=== PATIENT | female | born 2000 | race Caucasian/White ===

== ENCOUNTER 2019-04-21 23:01 | Emergency (ER) | payer MEDICAID, BC ==
[~2019-04-21] VITALS: Ht 160 cm; Wt 90.5 kg
[2019-04-21 23:10] VITALS: TEMP 97.3
[2019-04-21 23:45] LABS: HEMATOCRIT 42.9 % (35.0-45.0); HEMOGLOBIN 14.2 g/dl (12.0-15.0); MEAN CELL VOLUME 77 fl (80.0-95.0); MEAN CORPUSCULAR HEMOGLOBIN 26 pg (26.0-32.0); MEAN CORPUSCULAR HGB CONC 33 g/dl (33.0-37.0); MEAN PLATELET VOLUME 11.1 fl (7.4-10.4); PLATELET COUNT 331 K/mm3 (130-400); RED BLOOD COUNT 5.56 M/mm3 (4.10-5.30); REDCELL DISTRIBUTION WIDTH-CV 14.2 % (11.5-14.5)
[2019-04-21 23:51] LABS: ALBUMIN 3.8 gm/dL (3.5-5.0); BILIRUBIN,TOTAL 0.5 mg/dL (0.0-1.0); CALCIUM 9.9 mg/dL (8.4-10.2); CREATININE, serum 0.51 (0.52-1.25); POTASSIUM 4.2 mmol/L (3.4-5.0); TOTAL PROTEIN 7.3 gm/dL (6.4-8.2)
[2019-04-22 00:39] LABS: BAND 19 % (0-10); LYMPHOCYTE 3 % (20.0-51.0); NEUTROPHILS 76 % (42.0-75.2); PLATELET ESTIMATE NORMAL (NORMAL)
[2019-04-22 00:41] LABS: OVALOCYTES 1+; TEAR DROP CELLS 1+
[2019-04-22 01:20] LABS: COLLECTION METHOD CLEAN CATCH
--- NOTE | 2019-04-22 01:52 | NUR ---
[address] MON[address]ING SHOWN TO DR MATA. WNL. MAY REMOVE MONITOR. PT IS EXPEIENCING MILD CRAMPING - DESCRIBES MENSTRUAL CRAMPS
[2019-04-22 02:17] LABS: MUCOUS Present /lpf; PH 5 (5-8); SQUAMOUS EPITHELIAL 0-2 /hpf; URINE APPEARANCE Hazy; URINE BACTERIA None Seen /hpf; URINE BILIRUBIN Negative (NEGATIVE); URINE BLOOD Negative (NEGATIVE); URINE COLOR Yellow; URINE GLUCOSE Negative (NEGATIVE); URINE KETONE 2+ (NEGATIVE); URINE LEUKOCYTE ESTERASE Negative (NEGATIVE); URINE NITRATE Negative (NEGATIVE); URINE PROTEIN(semi-quant) 2+ (NEGATIVE); URINE UROBILINOGEN Negative (NEGATIVE)
[2019-04-22 03:09] VITALS: BP 120/79; PULSE 110
== END 2019-04-22 03:03 | disposition home or self-care (01) ==
LOC: COL.ER 23:01
PROVIDERS: Emergency Medicine
DX: K52.9 Noninfective gastroenteritis and colitis, unspecified (principal)
CPT/HCPCS: J2405; J7030

== ENCOUNTER 2019-05-03 06:58 | Inpatient (IN) | payer BC, MEDICAID ==
[2019-05-03] VITALS (30 sets, daily range): BP systolic 102–140; BP diastolic 53–94; PULSE 69–107; TEMP 97.6–98
[~2019-05-03] VITALS: Ht 160 cm; Wt 91.4 kg
--- NOTE | 2019-05-03 07:10 | NUR ---
Patient ambulatory to LR5 with significant other and mother, changed into clean gown, FHR/TOCO monitors placed and explained. Patient denies any regular contraction/leaking of fluid/vaginal bleeding. Plan of care discussed and patient verbalizes understanding. 0720: IV started in right hand, blood obtained and to lab, LR infusing. Consents gone over and signed and assessment completed.
[2019-05-03 08:13] LABS: BASO % 0.3 % (0.0-2.0); EOS # 0.1 (0.0-0.7); EOS % 0.6 % (0-4.0); HEMOGLOBIN 12.9 g/dl (12.0-15.0); LYMPH # 1.8 (1.2-3.4); LYMPH % 12.8 % (20.0-51.0); MEAN CELL VOLUME 77 fl (80.0-95.0); MEAN CORPUSCULAR HEMOGLOBIN 25 pg (26.0-32.0); MEAN CORPUSCULAR HGB CONC 32 g/dl (33.0-37.0); MEAN PLATELET VOLUME 10.8 fl (7.4-10.4); MONO # 0.9 (0.1-0.6); MONO % 6.6 % (1.7-9.3); PLATELET COUNT 303 K/mm3 (130-400); RED BLOOD COUNT 5.21 M/mm3 (4.10-5.30); REDCELL DISTRIBUTION WIDTH-CV 14.4 % (11.5-14.5)
--- NOTE | 2019-05-03 08:30 | NUR ---
Dr Luevano at bedside and discussing plan of care. 0832: SVE per physician 3-4/100/-1 and AROM at this time with clear fluid noted. 0850: Patient off monitor to void and pericare. 0853: Patient on birthing ball and difficulty tracing FHR due to maternal position. This RN at bedside adjusting FHR montior.
--- NOTE | 2019-05-03 09:30 | NUR ---
FHR baseline 125 bpm. Subtle recurrent late decelerations noted at this time. Patient very uncomfortable with contractions and requesting epidural. Davis LEE called and notified. 1005: Patient sitting up for placement of epidural. Davis RN at bedside. FHR difficult to trace due to maternal position. 1013: Single shot given and patient tolerates well. 1018: Patient repositioned and becoming more comfortable. FHR tracing at 115-120bpm. SVE-5/100/-1 Patient wedged right and FHR increasing to 120-125bpm. 1035: Variable/early decelerations into the 80-90s noted but return quikly to baseline. 1055: Mohan catheter placed and patient tolerates well. SVE-8//-[address] Luevano called and notified.
--- NOTE | 2019-05-03 12:10 | NUR ---
1210: SVE-10/100/+1 Pushing instructions gone over and practice push at this time. Mohan catheter removed and patient tolerates well. Dr. Luevano called and notifed. FHR decreases to 100-115bpm at this time. 1220: Patient begins to push with each contraction. FHR gradually returning to 115-120bpm. 1240: Dr. Luevano at bedside and begins pushing with patient and assessing progress and FHR strip. Orders to continue pushing with patient and will be at nurses station. Patient continues to push with each contraction. 1300: Good maternal effort and Dr Luevano called into room Patient set up for delivery and bed taken apart. Pericare done. Patient continues to push with Dr. Luevano./ 1308: Spontaneous vaginal delivery of head followed by body. Infant to mothers abdomen and Ele RN assumes care of infant. Cord clamped by physician and cut by FOB. Cord blood obtained. 1313: Spontaneous vaginal delivery of placenta. Pitocin bolus started per protocol. Dr. Luevano begins repairing laceration of 1st degree 1315: Patient repostioned, fundal massage done/firm/bleeding WNL. Ice pack to perineum and plan of care discussed,
--- NOTE | 2019-05-03 15:45 | NUR ---
Patient ambulatory to bathroom with standby assist. Pericare done, new gown, undies, ice pack on. Patient to wheelchair and to room. Patient and family oriented to room, whiteboard gone over, and plan of care discussed
[2019-05-04 05:20] VITALS: BP 116/67; PULSE 81; TEMP 97.6
--- NOTE | 2019-05-04 09:58 | NUR ---
Initial visit; Parents thanked Pantograph Machine Set Up Operator for offering congratulations and God's blessings for the of their son. Pantograph Machine Set Up Operator thanked family for choosing [facility].
[2019-05-04 11:00] VITALS: BP 111/61; PULSE 89; TEMP 98.1
[2019-05-04 15:43] VITALS: BP 122/68; PULSE 91; TEMP 97.8
[2019-05-04 20:20] VITALS: BP 115/63; PULSE 87; TEMP 97.9
[2019-05-05 07:45] VITALS: BP 109/53; PULSE 85; TEMP 97.7
[2019-05-05] MEDS ORDERED: IBU600 MG PO (08:48)
== END 2019-05-05 11:45 | disposition home or self-care (01) | DRG 807 ==
LOC: LDR 06:58 → OB 06:58 → LDR 08:03 → OB 16:00
PROVIDERS: ADMIT Obstetrics & Gynecology
PROC: 10E0XZZ Delivery of Products of Conception, External Approach (ICD-10-PCS; principal; 2019-05-03)
PROC: 10907ZC Drainage of Amniotic Fluid, Therapeutic from Products of Conception, Via Natural or Artificial Opening (ICD-10-PCS; 2019-05-03)
PROC: 0HQ9XZZ Repair Perineum Skin, External Approach (ICD-10-PCS; 2019-05-03)
DX: O36.63X0 Maternal care for excessive fetal growth, third trimester, not applicable or unspecified (principal); Z37.0 Single live birth; Z3A.39 39 weeks gestation of pregnancy; O70.0 First degree perineal laceration during delivery
CPT/HCPCS: J2405; J2540; J2590; J2795; J7120

== ENCOUNTER 2022-01-30 07:37 | Inpatient (IN) | payer BC, MEDICAID ==
[~2022-01-30] VITALS: Ht 162.6 cm; Wt 87.3 kg
[~2022-01-30 07:37] MED LIST: IBU600 MG PO
[2022-01-31] VITALS (31 sets, daily range): BP systolic 93–131; BP diastolic 50–74; PULSE 72–941; TEMP 97.4–98.4
--- NOTE | 2022-01-31 10:55 | NUR ---
042737.3, G2L1 arrives on unit for scheduled IOL. Ambulatory to LDR6 with family. Changes into clean gown. Reports normal movement, and rare contractions. Denies any LOF or VB. 1106EFM explained and placed. Tracing well. VS obtained. Assessment completed. 1127 IV to right wrist. Routine labs obtained. IVF infusing. 1130Pitocin explained and started at 2mu per protocol. Consent forms explained and signed. 1320Dr. Goodpasture updated on pt. See physician notification. 1340C. Marcelo WASHER HAND at bedside for epidural placement. FHR tracing intermittenly due to maternal position. RN remains at bedside. 1345Epidural placed and single shot by Carlos Enrique Robertson CRNA. See anesthesia record. 1355Pt wedge left. Plan of care and safety precautions reviewed. Call light within reach.
[2022-01-31 11:48] LABS: BASO % 0.2 % (0.0-2.0); EOS # 0.2 K/mm3 (0.0-0.7); EOS % 1.2 % (0.0-4.0); GRAN % 77.9 % (42.2-75.2); HEMATOCRIT 39.7 % (37.0-47.0); HEMOGLOBIN 13.4 g/dl (12.5-16.0); LYMPH # 1.8 K/mm3 (1.2-3.4); LYMPH % 13.8 % (20.0-51.0); MEAN CELL VOLUME 82 fl (80.0-100.0); MEAN CORPUSCULAR HEMOGLOBIN 28 pg (27-31); MEAN CORPUSCULAR HGB CONC 34 g/dl (33.0-37.0); MONO # 0.8 K/mm3 (0.1-0.6); MONO % 6.4 % (1.7-9.3); PLATELET COUNT 236 K/mm3 (130-400); RED BLOOD COUNT 4.84 M/mm3 (4.10-5.30); REDCELL DISTRIBUTION WIDTH-CV 13.4 % (11.5-14.5)
--- NOTE | 2022-01-31 16:00 | NUR ---
1600 AIDEN AT BEDSIDE FOR DELIVERY. 1603 PT BEGINS TO PUSH WITH CONTRACTION WITH DR. WOLFE AT FOOT OF BED. 1605 SPOTANEOUS VAGINAL DELIVERY OF VIABLE FEMALE OVER INTACT PERINEUM. DELIVERED THROUGH NUCHAL CORD X 1. INFANT PLACED ON MOMS CHEST DRIED AND STIMULATED. BULB USED FOR SUCTION OF NOSE AND MOUTH BY May RAMIREZ RN 1607 CORD CLAMP X2 AND CUT BY FATHER OF BABY. CARE OF ASSUMED BY May RAMIREZ RN. 1610 SPONTANEOUS AND INTACT DELIVERY OF PLACENTA, PITOCIN STARTED [id number]. PERICARE PROVIDED ICEPACK APPLIED TO PERINEUM. SEE DICTATION, ANESTHESIA RECORD, AND NURSES NOTES.
--- NOTE | 2022-01-31 21:45 | NUR ---
1829- REPORT REC'D FROM ANELISE, RN/ TRANSFER OF CARE. PT SITTING UP IN BED HOLDING . DENIES ANY C/O PAIN AT THIS TIME. EPIDURAL CATHETER REMOVED BY THIS RN. PT TOLERATED WELL W/O ANY COMPLAINTS. BLUE TIP INTACT. NO REDNESS OR DRAINAGE NOTED FROM EPIDURAL SITE. 1929- PT UP TO BR INDEPENDENTLY W/O ANY PROBLEMS. STEADY GAIT. PT ABLE TO VOID AND PERFORM CHRIS CARE. EDUCATED PT ON BLEEDING AND WHEN TO NOTIFY NURSE. PT VERBALIZES UNDERSTANDING. 1939- PT TRANSFERRED TO ROOM 208,AMBULATORY. SIG. OTHER, RAUDEL REMAINS AT BS AND HELPFUL AND SUPPORTIVE. ORIENTED TO ROOM, POC D/W PT FOR THE NIGHT. CALL LIGHT WITHIN REACH. 2099- PT C/O MILD CRAMPING AND REQUEST PAIN MEDICATION. NURSING . 2109- TYLENOL 1000 MG PO GIVEN FOR PAIN. PT UP TO BR. ABLE TO VOID. #2 VOID SINCE DELIVERY. PT DENIES ANY FURTHER NEEDS AT THIS TIME.
[2022-02-01 07:30] VITALS: BP 110/69; PULSE 93; TEMP 97.6
[2022-02-01] MEDS ORDERED: MOTRIN 800800 MG/TAB PO (09:02)
--- NOTE | 2022-02-01 11:08 | NUR ---
Initial visit; Patient and family thanked Wine Fermenter for offering congratulations and God's blessings for the of their daughter. Wine Fermenter thanked family for choosing [facility].
[2022-02-01 12:45] VITALS: BP 112/68; PULSE 69; TEMP 98
== END 2022-02-01 17:23 | disposition home or self-care (01) | DRG 807 ==
LOC: LDR 01-31 07:36 → OB 01-31 19:40
PROVIDERS: ADMIT Student in an Organized Health Care Education/Training Program
PROC: 10E0XZZ Delivery of Products of Conception, External Approach (ICD-10-PCS; principal; 2022-01-31)
PROC: 10907ZC Drainage of Amniotic Fluid, Therapeutic from Products of Conception, Via Natural or Artificial Opening (ICD-10-PCS; 2022-01-31)
PROC: 3E033VJ Introduction of Other Hormone into Peripheral Vein, Percutaneous Approach (ICD-10-PCS; 2022-01-31)
DX: O35.8XX0 Maternal care for other (suspected) fetal abnormality and damage, not applicable or unspecified (principal); Z37.0 Single live birth; O76 Abnormality in fetal heart rate and rhythm complicating labor and delivery; O62.3 Precipitate labor; O69.1XX0 Labor and delivery complicated by cord around neck, with compression, not applicable or unspecified; Z3A.39 39 weeks gestation of pregnancy
CPT/HCPCS: J2590; J7120